=== PATIENT | female | born 1970 | race Two or more races ===

== ENCOUNTER 2016-06-19 04:16 | Emergency (ER) | payer MEDICAID ==
[~2016-06-19] VITALS: Ht 175.3 cm; Wt 96.0 kg
[2016-06-19 04:24] VITALS: BP 127/94
[2016-06-19] MEDS ORDERED: KETOROLAC 60MG/2ML VIAL IM ONE (05:15)
== END 2016-06-19 06:25 | disposition home or self-care (01) ==
LOC: ER 04:22
DX: M25.541 Pain in joints of right hand (principal)
CPT/HCPCS: 96372; 99283; J1885

== ENCOUNTER 2016-06-22 05:10 | Emergency (ER) | payer MEDICAID ==
[~2016-06-22] VITALS: Ht 175.3 cm; Wt 112.0 kg
[2016-06-22 05:54] VITALS: BP 145/92
== END 2016-06-22 06:50 | disposition left against medical advice (07) ==
LOC: ER 05:10
DX: Z53.21 Procedure and treatment not carried out due to patient leaving prior to being seen by health care provider (principal)